=== PATIENT | male | born 1945 | race Caucasian/White ===

== ENCOUNTER 2016-10-04 08:01 | Inpatient (IN) | payer MEDICARE, BC ==
[2016-10-04] MEDS ORDERED: SODIUM CHLORIDE 0.9% 500 ML IV STA (08:05)
[2016-10-04] MEDS ORDERED: DILTIAZEM 125 MG in SODIUM CHLORIDE 0.9% 100 ML IV ONE ×2 (08:06→09:59)
--- NOTE | 2016-10-04 08:15 | ED ---
General Adult HPI - General Stated complaint: afib, sob Time Seen by Provider: 10/04/16 08:01 Source: RN notes reviewed - History of Present Illness Initial comments: This is a 71-year-old male with past medical history of coronary artery disease and 3 heart attacks. Patient states he also has high blood pressure and he has had his heart racing in the past. Patient states she does not know if he said atrial fibrillation or not. Patient states about 5:30 this morning woke up and felt short of breath. Patient states started having some chest discomfort but it was not anywhere near the same as his heart attacks. Patient states he took a nitroglycerin as to help did not his difficulty breathing got worse they called EMS. EMS gave him a breathing treatment in route because he thought it was tight he currently is feeling much better. Patient states he is not having any chest pain or pressure at this time. Patient denies any palpitations. Patient states he is still somewhat short of breath but not as bad as earlier. Patient denies any recent fever chills or cough. Patient states he has an occasional cough but no real sputum production. Patient states he is still smoking. - Related Data Home Medications Medication Instructions Recorded Confirmed Aspirin 81 mg PO DAILY 11/23/14 10/04/16 Atenolol [Tenormin] 25 mg PO DAILY 11/23/14 10/04/16 Baclofen [Lioresal] 10 mg PO TID 11/23/14 10/04/16 Budesonide [Pulmicort] 0.25 mg INHALATION RT-BID 11/23/14 10/04/16 Cholecalciferol [Vitamin D3] 400 unit PO DAILY 11/23/14 10/04/16 Clopidogrel [Plavix] 75 mg PO DAILY 11/23/14 10/04/16 Isosorbide Mononitrate ER [Imdur] 60 mg PO DAILY 11/23/14 10/04/16 Levalbuterol Hfa Inhaler [Xopenex 2 puff INHALATION RT-Q6H PRN 11/23/14 10/04/16 Hfa Inhaler] Levothyroxine Sodium [Synthroid] 88 mcg PO DAILY 11/23/14 10/04/16 Multivitamin [Men's Multi-Vitamin] 1 tab PO DAILY 11/23/14 10/04/16 Nitroglycerin Sl Tabs [Nitrostat] 0.4 mg SUBLINGUAL Q5M PRN 11/23/14 10/04/16 Quinapril HCl [Accupril] 5 mg PO DAILY 11/23/14 10/04/16 Simvastatin [Zocor] 40 mg PO HS 11/23/14 10/04/16 Zafirlukast [Accolate] 20 mg PO BID 11/23/14 10/04/16 amLODIPine [Norvasc] 5 mg PO DAILY 11/23/14 10/04/16 clonazePAM [KlonoPIN] 0.5 tab PO TID 11/23/14 10/04/16 Calcium Carbonate [Tums] 500 mg PO TID 03/22/16 10/04/16 Ferrous Sulfate [Feosol] 325 mg PO DAILY 03/22/16 10/04/16 Meclizine [Antivert] 12.5 mg PO DAILY 03/22/16 10/04/16 Allergies Allergy/AdvReac Type Severity Reaction Status Date / Time codeine Allergy Unknown Verified 10/04/16 08:09 iodine Allergy Unknown Verified 10/04/16 08:09 neoprene Allergy Unknown Uncoded 03/22/16 11:30 Review of Systems ROS Statement: Those systems with pertinent positive or pertinent negative responses have been documented in the HPI. ROS Other: All systems not noted in ROS Statement are negative. Past Medical History Past Medical History: Asthma, CVA/TIA, GERD/Reflux, Hypertension, Myocardial Infarction ([place]), Seizure Disorder, Sleep Apnea/CPAP/BIPAP, Syncope, Thyroid Disorder Additional Past Medical History / Comment(s): anemia, dizziness, "black outs" basal spastic disease, myoclonus sizures, RLS, recent black out bruised 4 ribs Last Myocardial Infarction Date:: 2002 History of Any Multi-Drug Resistant Organisms: None Reported Past Surgical History: Cholecystectomy, Heart Catheterization With Stent, Orthopedic Surgery, Tonsillectomy Additional Past Surgical History / Comment(s): surgery for sleep apnea, varicose veins removed angelita. legs Past Anesthesia/Blood Transfusion Reactions: Previous Problems w/ Anesthesia Additional Past Anesthesia/Blood Transfusion Reaction / Comment(s): states spinal anesthesia cuases inability to urinate Date of Last Stent Placement:: 1996 Smoking Status: Current some day smoker - Past Family History Father Family Medical History: Cancer Mother Family Medical History: Cancer Brother(s) Family Medical History: Cancer General Exam - General Exam Comments Initial Comments: GENERAL: Patient is well-developed and well-nourished. Patient is nontoxic and well- hydrated and is in no acute distress. ENT: Neck is soft and supple. No significant lymphadenopathy is noted. Oropharynx is clear. Moist mucous membranes. Neck has full range of motion without eliciting any pain. EYES: The sclera were anicteric and conjunctiva were pink and moist. Extraocular movements were intact and pupils were equal round and reactive to light. Eyelids were unremarkable. PULMONARY: Unlabored respirations. Good breath sounds bilaterally. No audible rales rhonchi or wheezing was noted. CARDIOVASCULAR: Patient has no regular rate and rhythm at about 150 beats a minute. ABDOMEN: Soft and nontender with normal bowel sounds. No palpable organomegaly was noted. There is no palpable pulsatile mass. SKIN: Skin is clear with no lesions or rashes and otherwise unremarkable. NEUROLOGIC: Patient is alert and oriented x3. Cranial nerves II through XII are grossly intact. Motor and sensory are also intact. Normal speech, volume and content. Symmetrical smile. MUSCULOSKELETAL: Normal extremities with adequate strength and full range of motion. No lower extremity swelling or edema. No calf tenderness. LYMPHATICS: No significant lymphadenopathy is noted PSYCHIATRIC: Normal psychiatric evaluation. Normal interpersonal interactions appears functionally intact in deals appropriately with others. No signs of depression. No signs of anxiety. Course Vital Signs 10/04/16 10/04/16 10/04/16 08:04 08:30 08:45 Temperature 100.0 F H Pulse Rate 155 H 154 H 156 H Respiratory 20 18 20 Rate Blood Pressure 140/90 130/77 102/67 O2 Sat by Pulse 97 98 97 Oximetry 10/04/16 10/04/16 09:00 09:30 Temperature Pulse Rate 144 H 152 H Respiratory 20 20 Rate Blood Pressure 110/87 116/77 O2 Sat by Pulse 96 97 Oximetry Medical Decision Making - Medical Decision Making EKG shows atrial fibrillation with rapid ventricular response at 160 beats a minute QRS is 94 QT interval is 298 QTC is 486. Patient's EKG shows no ST segment elevation or depression or T-wave abdomen is noted. I spoke with the patient for approximately 4 minutes about smoking in the options to quit as well as the potential issues in the future. Chest x-ray shows no acute abnormality. Started the patient on a Cardizem drip after I gave the patient a 5 mg bolus of Cardizem. I spoke with Dr. White he agreed to admit the patient admitted the patient I continued the Cardizem on the floor as well as heparin. - Lab Data Result diagrams: 10/04/16 08:11 10/04/16 08:11 Lab Results 10/04/16 10/04/16 10/04/16 Range/Units 08:11 08:11 08:11 WBC 8.5 (3.8-10.6) k/uL RBC 4.60 (4.30-5.90) m/uL Hgb 16.1 (13.0-17.5) gm/dL Hct 44.5 (39.0-53.0) % MCV 96.7 (80.0-100.0) fL MCH 35.0 (25.0-35.0) pg MCHC 36.2 (31.0-37.0) g/dL RDW 13.1 (11.5-15.5) % Plt Count 225 (150-450) k/uL Neutrophils % 45 % Lymphocytes % 43 % Monocytes % 7 % Eosinophils % 3 % Basophils % 1 % Neutrophils # 3.8 (1.3-7.7) k/uL Lymphocytes # 3.6 (1.0-4.8) k/uL Monocytes # 0.6 (0-1.0) k/uL Eosinophils # 0.2 (0-0.7) k/uL Basophils # 0.1 (0-0.2) k/uL PT (9.0-12.0) sec INR (<1.1) APTT (22.0-30.0) sec Sodium 142 (137-145) mmol/L Potassium 3.7 (3.5-5.1) mmol/L Chloride 111 H (98-107) mmol/L Carbon Dioxide 20 L (22-30) mmol/L Anion Gap 11 mmol/L BUN 9 (9-20) mg/dL Creatinine 0.76 (0.66-1.25) mg/dL Est GFR (MDRD) Af Amer >60 (>60 ml/min/1.73 sqM) Est GFR (MDRD) Non-Af >60 (>60 ml/min/1.73 sqM) Glucose 117 H (74-99) mg/dL Plasma Lactic Acid Mio (0.7-2.0) mmol/L Calcium 8.9 (8.4-10.2) mg/dL Magnesium 1.7 (1.6-2.3) mg/dL Total Bilirubin 0.4 (0.2-1.3) mg/dL AST 24 (17-59) U/L ALT 25 (21-72) U/L Alkaline Phosphatase 74 (38-126) U/L Total Creatine Kinase 45 L (55-170) U/L CK-MB (CK-2) 0.5 (0.0-2.4) ng/mL CK-MB (CK-2) Rel Index 1.1 Troponin I <0.012 (0.000-0.034) ng/mL Total Protein 6.2 L (6.3-8.2) g/dL Albumin 3.7 (3.5-5.0) g/dL TSH 1.900 (0.465-4.680) mIU/L Free T4 1.12 (0.78-2.19) ng/dL 10/04/16 10/04/16 Range/Units 08:11 08:11 WBC (3.8-10.6) k/uL RBC (4.30-5.90) m/uL Hgb (13.0-17.5) gm/dL Hct (39.0-53.0) % MCV (80.0-100.0) fL MCH (25.0-35.0) pg MCHC (31.0-37.0) g/dL RDW (11.5-15.5) % Plt Count (150-450) k/uL Neutrophils % % Lymphocytes % % Monocytes % % Eosinophils % % Basophils % % Neutrophils # (1.3-7.7) k/uL Lymphocytes # (1.0-4.8) k/uL Monocytes # (0-1.0) k/uL Eosinophils # (0-0.7) k/uL Basophils # (0-0.2) k/uL PT 10.0 (9.0-12.0) sec INR 1.0 (<1.1) APTT 26.1 (22.0-30.0) sec Sodium (137-145) mmol/L Potassium (3.5-5.1) mmol/L Chloride (98-107) mmol/L Carbon Dioxide (22-30) mmol/L Anion Gap mmol/L BUN (9-20) mg/dL Creatinine (0.66-1.25) mg/dL Est GFR (MDRD) Af Amer (>60 ml/min/1.73 sqM) Est GFR (MDRD) Non-Af (>60 ml/min/1.73 sqM) Glucose (74-99) mg/dL Plasma Lactic Acid Mio 1.8 (0.7-2.0) mmol/L Calcium (8.4-10.2) mg/dL Magnesium (1.6-2.3) mg/dL Total Bilirubin (0.2-1.3) mg/dL AST (17-59) U/L ALT (21-72) U/L Alkaline Phosphatase (38-126) U/L Total Creatine Kinase (55-170) U/L CK-MB (CK-2) (0.0-2.4) ng/mL CK-MB (CK-2) Rel Index Troponin I (0.000-0.034) ng/mL Total Protein (6.3-8.2) g/dL Albumin (3.5-5.0) g/dL TSH (0.465-4.680) mIU/L Free T4 (0.78-2.19) ng/dL Critical Care Time Critical Care Time: Yes Total Critical Care Time: 35 Disposition Clinical Impression: Atrial fibrillation with rapid ventricular response Disposition: ADMITTED IP TO THIS HOSP Referrals: Musa Sheth MD [Primary Care Provider] - 1-2 days
[2016-10-04 08:23] LABS: Basophils # (A) 0.1 k/uL (0-0.2); Basophils % (A) 1 %; CH 34.3; CHCM 35.6; Eosinophils # (A) 0.2 k/uL (0-0.7); Eosinophils % (A) 3 %; HCT 44.5 % (39.0-53.0); HDW 2.48; HGB 16.1 gm/dL (13.0-17.5); Luc # (Auto) 0.18; Luc % (Auto) 2; Lymphocytes # (A) 3.6 k/uL (1.0-4.8); Lymphocytes % (A) 43 %; MCHC 36.2 g/dL (31.0-37.0); MCV 96.7 fL (80.0-100.0); Mean Platelet Volume 7.3; Monocytes # (A) 0.6 k/uL (0-1.0); Monocytes % (A) 7 %; Neutrophils # (A) 3.8 k/uL (1.3-7.7); Neutrophils % (A) 45 %; RDW 13.1 % (11.5-15.5); WBC 8.5 k/uL (3.8-10.6)
[2016-10-04 08:32] LABS: Partial Thromboplastin Time 26.1 sec (22.0-30.0)
[2016-10-04 08:34] LABS: ALT 25 U/L (21-72); AST 24 U/L (17-59); Alkaline Phosphatase 74 U/L (38-126); Anion Gap 11 mmol/L; Blood Urea Nitrogen 9 mg/dL (9-20); Calcium 8.9 mg/dL (8.4-10.2); Carbon Dioxide 20 mmol/L (22-30); Chloride 111 mmol/L (98-107); Glucose 117 mg/dL (74-99); Magnesium 1.7 mg/dL (1.6-2.3); Non-African American GFR(MDRD) >60 (>60 ml/min/1.73 sqM); Potassium 3.7 mmol/L (3.5-5.1); Sodium 142 mmol/L (137-145); Total Bilirubin 0.4 mg/dL (0.2-1.3); Total Protein 6.2 g/dL (6.3-8.2)
[2016-10-04 08:45] LABS: Creatine Kinase 45 U/L (55-170)
--- NOTE | 2016-10-04 08:54 | XR ---
EXAMINATION TYPE: XR chest 2V DATE OF EXAM: 10/04/2016 HISTORY: dysrhythmia. REFERENCE: Previous study dated 01/24/2016. FINDINGS: The lungs are overinflated. The heart is upper limits of normal in size. The lungs appear c lear. Pleural spaces are clear. IMPRESSION: 1. COPD. 2. BORDERLINE CARDIOMEGALY.
[2016-10-04 08:58] LABS: Creatine Kinase MB 0.5 ng/mL (0.0-2.4); Troponin I <0.012 ng/mL (0.000-0.034)
[2016-10-04] MEDS ORDERED: ASPIRIN 325 MG TAB PO STA (09:01)
[2016-10-04] MEDS ORDERED: DILTIAZEM 5 MG/ML 5 ML VIAL IVP STA (09:53)
[2016-10-04] MEDS ORDERED: NITROGLYCERIN SL TABS 0.4 MG TAB SUBLINGUAL PRN (10:19)
[2016-10-04] MEDS ORDERED: HEPARIN SODIUM,PORCINE 5,000 UNIT/ML 1 ML VIAL IV ONE (10:28)
[2016-10-04] MEDS ORDERED: NICOTINE 21MG/24HR PATCH TRANSDERM STA (10:29)
[2016-10-04] MEDS: HEPARIN SODIUM,PORCINE/D5W PMX 25,000 UNIT in DEXTROSE/WATER 1 500ML.BAG IV SCH (11:01)
[2016-10-04] MEDS ORDERED: THIAMINE 100 MG/ML 2 ML VIAL IM STA (12:28)
[2016-10-04] MEDS ORDERED: LORazepam 2 MG/ML SYRINGE IV PRN ×3 (12:28)
[2016-10-04 13:40] VITALS: BMI 28.3
[2016-10-04] MEDS ORDERED: ALBUTEROL NEBULIZED 2.5 MG/3 ML INHALATION PRN (14:19)
[2016-10-04] MEDS ORDERED: TEMAZEPAM 15 MG CAP PO PRN (14:21)
[2016-10-04 15:27] LABS: Creatine Kinase MB 0.6 ng/mL (0.0-2.4); Troponin I 0.013 ng/mL (0.000-0.034)
[2016-10-04] MEDS: BACLOFEN 10 MG TAB PO SCH ×3 (15:51→20:23)
[2016-10-04] MEDS: THIAMINE 100 MG TAB PO SCH (15:53)
[2016-10-04] MEDS: clonazePAM 0.5 MG TAB PO SCH ×3 (15:58→23:07)
[2016-10-04] MEDS: CALCIUM CARBONATE 500 MG CHEWABLE PO SCH (17:30)
[2016-10-04] MEDS: BUDESONIDE 0.25 MG/2 ML NEBU INHALATION SCH (20:49)
[2016-10-04] MEDS ORDERED: MONTELUKAST 10 MG TAB PO SCH (21:00)
[2016-10-04] MEDS ORDERED: ATORVASTATIN 20 MG TAB PO SCH (21:00)
[2016-10-04] MEDS ORDERED: ATENOLOL 25 MG TAB PO ONE (21:00)
[2016-10-04 21:34] LABS: Creatine Kinase 57 U/L (55-170)
[2016-10-04 21:46] LABS: Creatine Kinase MB 0.7 ng/mL (0.0-2.4); Troponin I <0.012 ng/mL (0.000-0.034)
[2016-10-05 03:07] LABS: Basophils # (A) 0.1 k/uL (0-0.2); Basophils % (A) 1 %; CH 33.8; CHCM 35.1; Eosinophils # (A) 0.3 k/uL (0-0.7); Eosinophils % (A) 4 %; HCT 40.9 % (39.0-53.0); HDW 2.49; HGB 14.5 gm/dL (13.0-17.5); Luc # (Auto) 0.12; Luc % (Auto) 2; Lymphocytes # (A) 2.3 k/uL (1.0-4.8); Lymphocytes % (A) 29 %; MCH 34.4 pg (25.0-35.0); MCHC 35.5 g/dL (31.0-37.0); MCV 96.9 fL (80.0-100.0); Mean Platelet Volume 7.4; Monocytes # (A) 0.5 k/uL (0-1.0); Monocytes % (A) 6 %; Neutrophils # (A) 4.7 k/uL (1.3-7.7); Neutrophils % (A) 59 %; RBC 4.22 m/uL (4.30-5.90); RDW 12.8 % (11.5-15.5); WBC 7.9 k/uL (3.8-10.6); WBC (Perox) 7.56
[2016-10-05 03:25] LABS: Anion Gap 7 mmol/L; Blood Urea Nitrogen 13 mg/dL (9-20); Calcium 8.7 mg/dL (8.4-10.2); Carbon Dioxide 23 mmol/L (22-30); Chloride 109 mmol/L (98-107); Cholesterol 134 mg/dL (<200); Glucose 93 mg/dL (74-99); HDL Cholesterol 38 mg/dL (40-60); Non-African American GFR(MDRD) >60 (>60 ml/min/1.73 sqM); Sodium 139 mmol/L (137-145); Triglycerides 150 mg/dL (<150)
[2016-10-05] MEDS ORDERED: LEVOTHYROXINE 88 MCG TAB PO SCH (06:30)
[2016-10-05] MEDS: BUDESONIDE 0.25 MG/2 ML NEBU INHALATION SCH (08:06)
--- NOTE | 2016-10-05 08:20 | P.CRDCN ---
History of Present Illness Consult date: 10/05/16 Requesting physician: Dae White Consult reason: atrial fibrillation Chief complaint: Heart racing History of present illness: This is a 71-year-old gentleman with known history of coronary artery disease and prior myocardial infarction, patient also states he underwent stent placement in the past. He follows with Dr. Turk in the office. History also of hypertension, hyperlipidemia, prior TIA, COPD, sleep apnea, hypothyroidism, nicotine dependence, and daily EtOH use of up to 15 bottles of beer a day. He presents to the hospital with symptoms of feeling his heart racing fast. He states he has had episodes of this in the past and has even worn Holter monitors which have never detected atrial fibrillation. He recalls an episode in May of this year prior to an office visit with Dr. Turk where he states his heart was racing. By the time he went to the office appointment his heart was back down to a normal heart rate. On presentation here patient's EKG showed atrial fibrillation with a rapid ventricular response. He was initiated on IV heparin and Cardizem and is currently in a normal sinus rhythm. Chest x- ray on admission revealed COPD with borderline cardiomegaly. Blood Pressure on arrival 140/90, heart rate in the 150s, temperature 100. Blood pressure this morning 140/80 with a heart rate in the 60s. CBC normal. Potassium 4.0, BUN 13 , creatinine 0.7. Troponins have been negative 3. TSH and free T4 normal. Cholesterol 134, triglycerides 150, LDL 66 and HDL 38. At the time of my examination this morning, patient feels well, denies any palpitations, no dizziness or lightheadedness. He is currently in a normal sinus rhythm. The patient did mention, that he had been having episodes of black stool, and is scheduled as an outpatient to undergo EGD and bowel capsule with Dr. Gibson. Does not noticed any black stool recently. 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 Last Myocardial Infarction Date:: 2003 History of Any Multi-Drug Resistant Organisms: None Reported Past Surgical History: Cholecystectomy, Heart Catheterization, Heart Catheterization With Stent, Orthopedic Surgery, Tonsillectomy Additional Past Surgical History / Comment(s): UVPPP, varicose veins removed angelita. legsL knee scope, colonoscopy with one varicosity found per pt. Past Anesthesia/Blood Transfusion Reactions: Previous Problems w/ Anesthesia Additional Past Anesthesia/Blood Transfusion Reaction / Comment(s): states spinal anesthesia causes inability to urinate. Pt has never received blood. Date of Last Stent Placement:: 1996 Smoking Status: Current every day smoker - Past Family History Father Family Medical History: Cancer Mother Family Medical History: Cancer, Respiratory Disorder Additional Family Medical History / Comment(s): Mother had TB Brother(s) Family Medical History: Cancer, Respiratory Disorder Additional Family Medical History / Comment(s): Brother had TB Medications and Allergies Home Medications Medication Instructions Recorded Confirmed Type Aspirin 81 mg PO DAILY 11/23/14 10/04/16 History Atenolol [Tenormin] 25 mg PO DAILY 11/23/14 10/04/16 History Baclofen [Lioresal] 10 mg PO TID 11/23/14 10/04/16 History Budesonide [Pulmicort] 0.25 mg INHALATION RT-BID 11/23/14 10/04/16 History Cholecalciferol [Vitamin D3] 400 unit PO DAILY 11/23/14 10/04/16 History Clopidogrel [Plavix] 75 mg PO DAILY 11/23/14 10/04/16 History Isosorbide Mononitrate ER [Imdur] 60 mg PO DAILY 11/23/14 10/04/16 History Levalbuterol Hfa Inhaler [Xopenex 2 puff INHALATION RT-Q6H PRN 11/23/14 History Hfa Inhaler] Levothyroxine Sodium [Synthroid] 88 mcg PO DAILY 11/23/14 10/04/16 History Multivitamin [Men's Multi-Vitamin] 1 tab PO DAILY 11/23/14 10/04/16 History Nitroglycerin Sl Tabs [Nitrostat] 0.4 mg SUBLINGUAL Q5M PRN 11/23/14 10/04/16 History Quinapril HCl [Accupril] 5 mg PO DAILY 11/23/14 10/04/16 History Simvastatin [Zocor] 40 mg PO HS 11/23/14 10/04/16 History Zafirlukast [Accolate] 20 mg PO BID 11/23/14 10/04/16 History amLODIPine [Norvasc] 5 mg PO DAILY 11/23/14 10/04/16 History clonazePAM [KlonoPIN] 0.5 tab PO TID 11/23/14 10/04/16 History Calcium Carbonate [Tums] 500 mg PO TID 03/22/16 10/04/16 History Ferrous Sulfate [Feosol] 325 mg PO DAILY 03/22/16 10/04/16 History Meclizine [Antivert] 12.5 mg PO DAILY 03/22/16 10/04/16 History Allergies Allergy/AdvReac Type Severity Reaction Status Date / Time codeine Allergy Unknown Verified 10/04/16 08:09 iodine Allergy Unknown Verified 10/04/16 08:09 neoprene Allergy Unknown Uncoded 03/22/16 11:30 Physical Exam Vitals: Vital Signs Temp Pulse Pulse Resp BP BP Pulse Ox 10/05/16 04:00 97.0 F L 68 18 145/85 97 10/05/16 00:00 66 16 142/84 95 10/04/16 20:52 80 10/04/16 20:42 80 10/04/16 20:32 96.9 F L 76 18 142/75 96 10/04/16 16:00 97.1 F L 70 20 126/75 100 10/04/16 11:30 105 H 18 130/88 99 10/04/16 11:06 98.0 F 126 H 20 113/67 97 10/04/16 10:00 148 H 18 143/81 97 10/04/16 09:30 152 H 20 116/77 97 10/04/16 09:00 144 H 20 110/87 96 10/04/16 08:45 156 H 20 102/67 97 10/04/16 08:30 154 H 18 130/77 98 Intake and Output 0710/05/16 10/05/16 22:59 06:59 14:59 Intake Total 383.667 80 Output Total 0 Balance 383.667 80 Intake: IV 80 .9 80 Intake, IV Titration 183.667 0 Amount Diltiazem 125 mg In 0 Sodium Chloride 0.9% 100 ml @ 5 MG/HR 5 mls/hr IV .Q24H ONE Rx#:[id number] Heparin Sodium,Porcine/ 183.667 D5w Pmx 25,000 unit In Dextrose/Water 1 500ml. bag @ 10.255 UNITS/KG/HR 20 mls/hr IV .Q24H [facility] Rx #:[id number] Oral 200 Output: Urine 0 Other: # Voids 1 Weight 97.3 kg PHYSICAL EXAMINATION: HEENT: [Head is atraumatic, normocephalic. Pupils equal, round. Neck is supple. There is no elevated jugular venous pressure.] HEART EXAMINATION: [Heart S1, S2 normal. No murmur or gallop heard.] CHEST EXAMINATION:[ Lungs are clear to auscultation and precussion. No chest wall tenderness is noted on palpation or with deep breathing.] ABDOMEN: [ Soft, nontender. Bowel sounds are heard. No organomegaly noted]. EXTREMITIES:[ 2+ peripheral pulses with no evidence of peripheral edema and no calf tenderness noted]. NEUROLOGIC [patient is awake, alert and oriented -3.] . Results 10/05/16 02:43 10/05/16 02:43 Cardiac Enzymes 10/04/16 10/04/16 10/04/16 Range/Units 08:11 08:11 14:21 AST 24 (17-59) U/L CK-MB (CK-2) 0.5 0.6 (0.0-2.4) ng/mL Troponin I <0.012 0.013 (0.000-0.034) ng/mL 10/04/16 Range/Units 20:39 AST (17-59) U/L CK-MB (CK-2) 0.7 (0.0-2.4) ng/mL Troponin I <0.012 (0.000-0.034) ng/mL Coagulation 10/04/16 10/04/16 10/05/16 Range/Units 08:11 17:32 02:43 PT 10.0 (9.0-12.0) sec APTT 26.1 37.0 H 51.1 H (22.0-30.0) sec 10/05/16 Range/Units 05:45 PT (9.0-12.0) sec APTT 51.2 H (22.0-30.0) sec Lipids 10/05/16 Range/Units 02:43 Triglycerides 150 H (<150) mg/dL Cholesterol 134 (<200) mg/dL HDL Cholesterol 38 L (40-60) mg/dL CBC 10/04/16 10/05/16 Range/Units 08:11 02:43 WBC 8.5 7.9 (3.8-10.6) k/uL RBC 4.60 4.22 L (4.30-5.90) m/uL Hgb 16.1 14.5 (13.0-17.5) gm/dL Hct 44.5 40.9 (39.0-53.0) % Plt Count 225 188 (150-450) k/uL Comprehensive Metabolic Panel 10/04/16 10/05/16 Range/Units 08:11 02:43 Sodium 142 139 (137-145) mmol/L Potassium 3.7 4.0 (3.5-5.1) mmol/L Chloride 111 H 109 H (98-107) mmol/L Carbon Dioxide 20 L 23 (22-30) mmol/L BUN 9 13 (9-20) mg/dL Creatinine 0.76 0.70 (0.66-1.25) mg/dL Glucose 117 H 93 (74-99) mg/dL Calcium 8.9 8.7 (8.4-10.2) mg/dL AST 24 (17-59) U/L ALT 25 (21-72) U/L Alkaline Phosphatase 74 (38-126) U/L Total Protein 6.2 L (6.3-8.2) g/dL Albumin 3.7 (3.5-5.0) g/dL Current Medications Generic Name Dose Route Start Last Admin Trade Name Freq PRN Reason Stop Dose Admin Albuterol Sulfate 2.5 mg 10/04/16 14:19 Ventolin Nebulized INHALATION RT-Q6H PRN Shortness Of Breath Amlodipine Besylate 5 mg 10/05/16 09:00 Norvasc PO DAILY [facility] Aspirin 325 mg 10/05/16 09:00 Aspirin PO DAILY [facility] Atenolol 25 mg 10/05/16 09:00 Tenormin PO DAILY [facility] Atorvastatin Calcium 20 mg 10/04/16 21:00 10/04/16 20:17 Lipitor PO 20 mg HS [facility] Administration Baclofen 10 mg 10/04/16 16:00 10/04/16 20:23 Lioresal PO 10 mg TID [facility] Administration Budesonide 0.25 mg 10/04/16 20:00 10/05/16 08:06 Pulmicort INHALATION 0.25 mg RT-BID [facility] Administration Calcium Carbonate/Glycine 500 mg 10/04/16 17:30 10/04/16 17:30 Tums PO 500 mg AC-TID [facility] Administration Cholecalciferol 400 unit 10/05/16 12:00 Vitamin D3 PO DAILY@1200 [facility] Clonazepam 0.5 mg 10/04/16 16:00 10/04/16 23:07 Klonopin PO 0.5 mg TID [facility] Administration Clopidogrel Bisulfate 75 mg 10/05/16 09:00 Plavix PO DAILY [facility] Ferrous Sulfate 325 mg 10/05/16 09:00 Feosol PO DAILY [facility] Heparin Sodium/Dextrose 25,000 500 mls @ 20 mls/hr 10/04/16 10:30 10/04/16 20 :12 unit/ IV Solution IV 13 units/kg/hr .Q24H [facility] 25.35 mls/hr Protocol Titration 10.255 UNITS/KG/HR Isosorbide Mononitrate 60 mg 10/05/16 09:00 Imdur PO DAILY [facility] Levothyroxine Sodium 88 mcg 10/05/16 06:30 10/05/16 06:40 Synthroid PO 88 mcg DAILY@0630 [facility] Administration Lisinopril 5 mg 10/05/16 09:00 Zestril PO DAILY [facility] Lorazepam 1 mg 10/04/16 12:28 Ativan IV Q2HR PRN [facility] 8 or 9 Lorazepam 1 mg 10/04/16 12:28 Ativan IV Q1HR PRN CIWA 10 to 15 Lorazepam 2 mg 10/04/16 12:28 Ativan IV Q1HR PRN [facility]WA 16 or higher Meclizine HCl 12.5 mg 10/05/16 09:00 Antivert PO DAILY [facility] Montelukast Sodium 10 mg 10/04/16 21:00 10/04/16 20:17 Singulair PO 10 mg HS [facility] Administration Multivitamins 1 each 10/05/16 12:00 Theragran PO DAILY@1200 [facility] Nitroglycerin 0.4 mg 10/04/16 10:19 Nitrostat SUBLINGUAL Q5M PRN Chest Pain Temazepam 15 mg 10/04/16 14:21 Restoril PO HS PRN Insomnia Thiamine HCl 100 mg 10/04/16 17:00 10/04/16 15:53 Vitamin B-1 PO 100 mg BID@1200,1700 [facility] Administration Intake and Output 10/04/16 10/05/16 10/05/16 22:59 06:59 14:59 Intake Total 383.667 80 Output Total 0 Balance 383.667 80 Intake: IV 80 .9 80 Intake, IV Titration 183.667 0 Amount Diltiazem 125 mg In 0 Sodium Chloride 0.9% 100 ml @ 5 MG/HR 5 mls/hr IV .Q24H [facility] Rx#:[id number] Heparin Sodium,Porcine/ 183.667 D5w Pmx 25,000 unit In Dextrose/Water 1 500ml. bag @ 10.255 UNITS/KG/HR 20 mls/hr IV .Q24H [facility] Rx #:[id number] Oral 200 Output: Urine 0 Other: # Voids 1 Weight 97.3 kg 10/05/16 02:43 10/05/16 02:43 EKG Interpretations (text) EKG shows atrial fibrillation with a rapid ventricular response Assessment and Plan Plan: Assessment and plan 1 atrial fibrillation with rapid ventricular response, paroxysmal. #2 known history of coronary artery disease with prior myocardial infarctions and prior stent placement #3 hypertension #4 hyperlipidemia #5 hypothyroidism #6 nicotine dependence #7 EtOH use #8 COPD #9 sleep apnea #10 prior TIA Plan Obtain an echocardiogram with Doppler study. IV Cardizem has been discontinued. Resume atenolol and increase the dose to 50 mg daily. Patient has been educated regarding the importance of anticoagulation. We will check on one of the newer anticoagulants. Patient has mentioned however that he has had recent black stool and is scheduled for an EGD as an outpatient. We will decrease his aspirin to 81 mg daily. We will also obtain Dr. Turk's progress note from the office. DNP note has been reviewed, I agree with a documented findings and plan of care. Patient was seen and examined.
[2016-10-05 08:29] VITALS: TEMP 97.1
[2016-10-05] MEDS: clonazePAM 0.5 MG TAB PO SCH (08:31)
[2016-10-05] MEDS: BACLOFEN 10 MG TAB PO SCH (08:32)
[2016-10-05] MEDS: CALCIUM CARBONATE 500 MG CHEWABLE PO SCH ×2 (08:33→11:22)
[2016-10-05] MEDS ORDERED: CLOPIDOGREL 75 MG TAB PO SCH (09:00)
[2016-10-05] MEDS ORDERED: NON-FORMULARY DRUG (Multivitamin [Men's Multi-Vitamin] 1 TAB) PO SCH (09:00)
[2016-10-05] MEDS ORDERED: ASPIRIN 81 MG CHEW PO SCH (09:00)
[2016-10-05] MEDS ORDERED: amLODIPine 5 MG TAB PO SCH (09:00)
[2016-10-05] MEDS ORDERED: LISINOPRIL 5 MG TAB PO SCH (09:00)
[2016-10-05] MEDS ORDERED: MECLIZINE 12.5 MG TAB PO SCH (09:00)
[2016-10-05] MEDS ORDERED: FERROUS SULFATE 325 MG TAB PO SCH (09:00)
[2016-10-05] MEDS ORDERED: ASPIRIN 325 MG TAB PO SCH (09:00)
[2016-10-05] MEDS ORDERED: ATENOLOL 50 MG TAB PO SCH (09:00)
[2016-10-05] MEDS ORDERED: ATENOLOL 25 MG TAB PO SCH (09:00)
[2016-10-05] MEDS ORDERED: ISOSORBIDE MONONITRATE ER 60 MG TAB.ER.24H PO SCH (09:00)
[2016-10-05] MEDS: HEPARIN SODIUM,PORCINE/D5W PMX 25,000 UNIT in DEXTROSE/WATER 1 500ML.BAG IV SCH (09:10)
--- NOTE | 2016-10-05 09:55 | P.PN ---
Progress Note - Text This is an addendum to the dictated cardiology consultation. The patient has a known history of CAD, chronic tobacco and alcohol intake who presented with palpitations, dizziness and diaphoresis and was noted to be in atrial fibrillation with rapid ventricular response. He is back in sinus mechanism. He had no prior documented history of atrial fibrillation. He has mild chronic angina pectoris and rare use of nitroglycerin over the last 6 months. Unfortunately he drinks beer on a daily basis up to 20 cans a day and had a recent heme-positive stool. I had a long discussion with him regarding the risk of thromboembolic phenomenon , the risk of bleeding on anticoagulation especially with the combination of alcohol intake and episode of GI bleeding. Based on this finding I will withhold anticoagulation at this time, he does not feel that he can decrease his alcohol intake but he will consider it. It is possible that his atrial fibrillation is related to the excessive alcohol intake. We'll continue to medical regimen and he will be followed as an outpatient. Thank you for this consult we will follow with you.
[2016-10-05] MEDS: THIAMINE 100 MG TAB PO SCH (11:22)
[2016-10-05 11:33] VITALS: BP 150/86; PULSE 61; RESP 18
[2016-10-05] MEDS ORDERED: CHOLECALCIFEROL 400 UNIT TAB PO SCH (12:00)
[2016-10-05] MEDS ORDERED: MULTIVITAMINS, THERA 1 EACH TAB PO SCH (12:00)
--- NOTE | 2016-10-06 08:09 | HP ---
DATE OF SERVICE: 10/04/2016 CHIEF COMPLAINTS: Shortness of breath and atrial fibrillation. HISTORY OF PRESENT ILLNESS: This 71-year-old gentleman with past medical history of multiple medical problems including history of asthma, COPD, CVA, TIA , hypertension, was admitted with shortness of breath and was found to have atrial fibrillation with fast ventricular rate. The patient was started on heparin and Cardizem drip. The patient also has history of significant ETOH and smoking also. No chest pain. No palpitations. No fever. PAST MEDICAL HISTORY: History of asthma, COPD, CVA, TIA, hypertension, hyperlipidemia. Medications prior to admission include home medications: 1. Nitro 0.4 sublingual p.r.n. 2. Antivert 12.5 mg daily. 3. Xopenex 2 puffs q.6 p.r.n. 4. Iron sulfate 325 mg p.o. daily. 5. Vitamin D3 400 units daily. 6. Accolate 20 mg p.o. b.i.d. 7. Zocor 40 mg at bedtime. 8. Synthroid 80 mcg p.o. daily. 9. Imdur 60 mg p.o. daily. 10. TUMS 500 mg p.o. daily. 11. Pulmicort 0.25 b.i.d. 12. Lioresal 10 mg p.o. t.i.d. 13. Klonopin 0.5 mg t.i.d. 14. Norvasc 5 mg p.o. daily. 15. Accupril 5 mg p.o. daily. 16. Plavix 75 mg p.o. daily. 17. Tenormin 25 mg p.o. daily. 18. Multivitamin 1 p.o. daily. 19. Aspirin 81 mg p.o. daily. ALLERGIES: CODEINE, IODINE, NEOPRENE. FAMILY HISTORY: History of cancer. Mother had TB. SOCIAL HISTORY: History of alcohol and smoking. REVIEW OF SYSTEMS: ENT: Diminished hearing, diminished vision. CARDIOVASCULAR: As mentioned. RESPIRATORY: As mentioned. GI: No nausea. : No dysuria. NERVOUS SYSTEM: No numbness or weakness. ALLERGY/IMMUNOLOGY: No asthma or hayfever. MUSCULOSKELETAL: As mentioned earlier. HEMATOLOGY: No history of anemia. ENDOCRINE: As mentioned earlier. CONSTITUTIONAL: As mentioned earlier. DERMATOLOGY: Negative. RHEUMATOLOGY: Negative. PSYCHIATRY: As mentioned earlier. PHYSICAL EXAMINATION: The patient is alert and oriented x3. Pulse 120 irregular , blood pressure 113/60, respirations 20, temperature 98 degrees, pulse ox 97% on 2-L. HEENT: Conjunctivae normal. NECK: No jugular venous distention. CARDIOVASCULAR: S1, S2 irregular. No S3, no S4. RESPIRATORY: Breath sounds are diminished at the bases. A few scattered rhonchi. ABDOMEN: Soft, nontender. LEGS: No edema. NERVOUS SYSTEM: No focal deficits. LABS: CBC within normal limits. Other labs are reviewed. CO2 is 20, glucose 117 , total protein 6.2. Chest x-ray reviewed. EKG reviewed. ASSESSMENT: 1. Atrial fibrillation with fast ventricular rate present on admission. 2. Chronic obstructive pulmonary disease on the chest x-ray. 3. History of asthma. 4. History of cerebrovascular accident, transient ischemic attack. 5. Hypertension. 6. History of seizure disorder. 7. History of coronary artery disease and stent. 8. History of ETOH and nicotine dependence. RECOMMENDATIONS AND DISCUSSION: In this 71-year-old gentleman who presented with multiple complex medical issues, will monitor the patient closely. Continue the current medications, continue Cardizem. Continue with heparin. Otherwise [place] protocol. Cardizem drip. Cardiology consultation. 2-D echo with Doppler. Guarded prognosis. Further recommendations to follow. MTDD
--- NOTE | 2016-10-07 15:27 | DS ---
FINAL DIAGNOSES: 1. Atrial fibrillation with fast ventricular rate, paroxysmal. 2. History of coronary artery stent. 3. History of ETOH. 4. History of nicotine dependence. 5. History of asthma, chronic obstructive pulmonary disease. 6. Hypertension. 7. History of seizure disorder. DISCHARGE DISPOSITION: The patient is being discharged in stale condition with guarded prognosis. HISTORY OF PRESENT ILLNESS: This 71-year-old gentleman with past medical history of multiple medical problems admitted with atrial fibrillation with fast ventricular rate. Patient was given Cardizem and improved significantly. Anticoagulants were deferred because of the patient's history of alcohol and other reasons. Please refer to cardiology note for further details. On exam, vitals are stable. Cardiovascular: S1, S2. No S3, no S4. Abdomen: Soft, nontender. Nervous System: No focal deficits. DISCHARGE ADVICE AND MEDICATIONS: 1. Diet is cardiac. 2. Activity limited until follow up. 3. Follow up with Dr. Rob Sheth in 2 to 3 days. 4. Follow with Cardiology as recommended. 5. The medications will be Norvasc 5 mg p.o. daily. 6. Aspirin 81 mg daily. 7. Tenormin 50 mg p.o. daily. 8. Lioresal 10 mg p.o. t.i.d. 9. Pulmicort 0.25 b.i.d. 10. TUMS 500 mg t.i.d. p.r.n. 11. Vitamin D3 400 units daily. 12. Klonopin 0.5 t.i.d. 13. Plavix 75 mg p.o. daily. 14. Iron sulfate 320 mg p.o. daily. 15. Imdur ER 60 mg p.o. daily. 16. Xopenex 2 puffs q.i.d. p.r.n. 17. Synthroid 88 mcg p.o. daily. 18. Antivert 12.5 mg p.o. daily. 19. Multivitamins 1 p.o. daily. 20. Nitro 0.4 sublingual p.r.n. 21. Accupril 5 mg p.o. daily. 22. Zocor 40 mg q.h.s. 23. Vitamin B1, thiamin 100 mg p.o. b.i.d. 24. Accolate 20 mg p.o. b.i.d. MTDD
--- NOTE | 2016-10-08 11:21 | ECHOF ---
Referral Reason:a-fib MEASUREMENTS -------- HEIGHT: 185.4 cm WEIGHT: 97.5 kg BP: 113/67 RVIDd: 2.4 cm (< 3.3) IVSd: 1.6 cm (0.6 - 1.1) LVIDd: 4.2 cm (3.9 - 5.3) LVPWd: 1.6 cm (0.6 - 1.1) IVSs: 1.8 cm LVIDs: 3.1 cm LVPWs: 1.9 cm LAESV Index (A-L): 12.59 ml/m Ao Diam: 3.9 cm (2.0 - 3.7) AV Cusp: 1.8 cm (1.5 - 2.6) LA Diam: 2.3 cm (2.7 - 3.8) MV EXCURSION: 20.824 mm (> 18.000) MV EF SLOPE: 101 mm/s (70 - 150) EPSS: 1.5 cm MV E Hank: 0.79 m/s MV DecT: 255 ms MV A Hank: 0.66 m/s MV E/A Ratio: 1.19 RAP: 5.00 mmHg RVSP: 10.49 mmHg FINDINGS -------- Sinus rhythm. This was a technically difficult study with suboptimal views. The left ventricular size is normal. There is moderate concentric left ventricular hypertrophy. Overall left ventricular systolic function is low-normal with, an EF between 50 - 55 %. The right ventricle is normal in size and function. Normal LA size by volume 22+/-6 ml/m2. The right atrium is normal in size. 1.5mg of Definity was utilized for enhancement of images There is mild aortic valve sclerosis. There is no evidence of aortic regurgitation. The mitral valve leaflets are mildly thickened. There is trace to mild mitral regurgitation. Trace tricuspid regurgitation present. There is no evidence of pulmonary hypertension. The right ventricular systolic pressure, as measured by Doppler, is 10.49mmHg. The pulmonic valve was not well visualized. There is no pulmonic regurgitation present. The aortic root size is normal. The inferior vena cava is mildly dilated. There is no pericardial effusion. CONCLUSIONS -------- 1. Sinus rhythm. 2. Trace tricuspid regurgitation present. 3. There is no evidence of pulmonary hypertension. 4. The pulmonic valve was not well visualized. 5. There is no pulmonic regurgitation present. 6. The aortic root size is normal. 7. The inferior vena cava is mildly dilated. 8. There is no pericardial effusion. 9. This was a technically difficult study with suboptimal views. 10. There is moderate concentric left ventricular hypertrophy. 11. Overall left ventricular systolic function is low-normal with, an EF between 50 - 55 %. 12. Normal LA size by volume 22+/-6 ml/m2. 13. 1.5mg of Definity was utilized for enhancement of images 14. There is mild aortic valve sclerosis. 15. The mitral valve leaflets are mildly thickened. 16. There is trace to mild mitral regurgitation. CONTRACT SERVICEMAN: Fidencio Westfall RDCS
== END 2016-10-05 14:00 | disposition home or self-care (01) | DRG 310 ==
LOC: EC 08:01 → 6SEL 10:21
PROVIDERS: ADMIT Internal Medicine; ATTEND Internal Medicine
PROC: HZ2ZZZZ Detoxification Services for Substance Abuse Treatment (ICD-10-PCS; principal; 2016-10-04)
DX: I48.0 Paroxysmal atrial fibrillation (principal); J44.9 Chronic obstructive pulmonary disease, unspecified; I10 Essential (primary) hypertension; E78.5 Hyperlipidemia, unspecified; E03.9 Hypothyroidism, unspecified; I25.119 Atherosclerotic heart disease of native coronary artery with unspecified angina pectoris; G40.909 Epilepsy, unspecified, not intractable, without status epilepticus; K21.9 Gastro-esophageal reflux disease without esophagitis; I25.2 Old myocardial infarction; H54.7 Unspecified visual loss; H91.90 Unspecified hearing loss, unspecified ear; G25.81 Restless legs syndrome; R19.5 Other fecal abnormalities; M47.9 Spondylosis, unspecified; G47.30 Sleep apnea, unspecified; F17.200 Nicotine dependence, unspecified, uncomplicated; Z95.5 Presence of coronary angioplasty implant and graft; Z86.73 Personal history of transient ischemic attack (TIA), and cerebral infarction without residual deficits; Z79.899 Other long term (current) drug therapy; Z79.82 Long term (current) use of aspirin; Z79.02 Long term (current) use of antithrombotics/antiplatelets; Z71.3 Dietary counseling and surveillance; Z71.6 Tobacco abuse counseling; Z71.41 Alcohol abuse counseling and surveillance of alcoholic; Z79.51 Long term (current) use of inhaled steroids; Z86.79 Personal history of other diseases of the circulatory system; Z87.828 Personal history of other (healed) physical injury and trauma; Z86.19 Personal history of other infectious and parasitic diseases; Z88.5 Allergy status to narcotic agent; Z88.8 Allergy status to other drugs, medicaments and biological substances; Z91.048 Other nonmedicinal substance allergy status; Z80.9 Family history of malignant neoplasm, unspecified; Z83.6 Family history of other diseases of the respiratory system; Z90.49 Acquired absence of other specified parts of digestive tract; Z72.89 Other problems related to lifestyle
CPT/HCPCS: 36415; 71020; 80048; 80053; 80061; 82550; 82553; 83605; 83735; 84439; 84443; 84484; 85025; 85610; 85730; 87040; 93005; 93306; 94640; 96365; 96366; 96375; 96376; 99291

== ENCOUNTER → 2016-10-10 | Outpatient (CLI) | payer MEDICARE, BC ==
--- NOTE | 2016-10-10 13:50 | FL ---
EXAMINATION: Small bowel follow through DATE: 10/10/2016 CLINICAL INDICATION: 71-year-old male with anemia and blood in stool. COMPARISON: None Total Fluoroscopy Time: 21 seconds Total images: 22 FINDINGS: Initial customer service manager image shows cystectomy clips and scattered mild stool burden. Nonobstructive bowel gas pattern. Mild degenerative change at both hips. Additional degenerative change in the lower lumbar sp ine. Following administration of barium, serial films were carried out to 3 hours. Barium is seen to reach the colon. Loops of jejunum and ileum are compressed and examined under fluoroscopy. The small bowel loops have a normal-caliber. Mucosal pattern is within normal limits. No intrinsic or extrinsic proc ess is suspected. IMPRESSION: Normal small bowel examination. Small bowel transit time of 3 hours.
== END | disposition home or self-care (01) ==
LOC: RADFLMAIN 08:04
PROVIDERS: ATTEND Internal Medicine Gastroenterology
DX: D64.9 Anemia, unspecified (principal)
CPT/HCPCS: 74250

== ENCOUNTER → 2021-04-23 | Outpatient (CLI) | payer MEDICARE, BC ==
--- NOTE | 2021-04-24 00:48 | MR ---
EXAMINATION TYPE: MR iac wo/w con DATE OF EXAM: 04/23/2021 COMPARISON: None HISTORY: Vertigo, bilateral hearing loss. CONTRAST: Standard multiplanar, multisequence MRI departmental protocol images were obtained without contrast a nd with 10 mL intravenous Gadavist gadolinium contrast. There is mild cerebral atrophy. There is no mass effect or midline shift. There is no sign of intracr anial hemorrhage. There is some mild linear increased signal in the periventricular white matter. The re are scattered peripheral white matter small high signal foci at the ca-white matter junction priscilla suring up to 4 mm in posterior lateral hemispheres. Portal numbers approximate 20% brainstem is intac t. Bone is intact. Diffusion images show no evidence of acute cortical infarct. Corpus callosum is intact. There is no evidence of orbital mass. There is some mild mucosal thickenin g in the maxillary sinuses. Sella turcica appears normal. The internal auditory canals appear normal. There is normal appearance of the acoustic nerve and vest ibular nerve. There is no evidence of cerebellopontine angle mass. Contrast images show no pathologic enhancement. Cerebellum is intact. There is normal signal pattern of the temporal bones. There is no evidence of mastoiditis. IMPRESSION: No evidence of focal posterior fossa abnormality. Scattered small white matter high signal foci could relate to microvascular ischemia and less likely demyelinating disease.
== END | disposition home or self-care (01) ==
LOC: RADMRIMAIN 16:31
PROVIDERS: ATTEND Otolaryngology
DX: R93.0 Abnormal findings on diagnostic imaging of skull and head, not elsewhere classified (principal); H91.93 Unspecified hearing loss, bilateral
CPT/HCPCS: 70553; A9585

== ENCOUNTER → 2022-07-11 | Outpatient (CLI) | payer MEDICARE, BC ==
--- NOTE | 2022-07-11 15:44 | XR ---
EXAMINATION TYPE: XR chest 2V DATE OF EXAM: 07/11/2022 COMPARISON: 10/04/2016 HISTORY: Shortness of breath TECHNIQUE: Frontal and lateral views of the chest are obtained. FINDINGS: Scattered senescent parenchymal changes noted. Hyperinflation compatible with COPD. No evidence for infiltrate. No evidence for atelectasis. Heart size is stable. Mediastinal structures are stable and grossly unremarkable. No evidence for hilar prominence. Degenerative changes dorsal spine. IMPRESSION: 1. No evidence for acute pulmonary disease.
[2022-07-11 21:58] LABS: HCT 42.8 % (39.6-50.0); HGB 14.2 g/dL (13.0-17.0); MCH 31.6 pg (27.0-32.0); MCHC 33.2 g/dL (32.0-37.0); MCV 95.1 fL (80.0-97.0); Mean Platelet Volume 9.9 fL (9.5-12.2); NRBC Per 100 WBC 0 /100 WBCS (0.0-0.0); Platelet Count 237 X 10*3/uL (140-440); RDW 12.5 % (11.5-14.5); WBC 8.07 X 10*3/uL (4.50-10.00)
[2022-07-12 00:37] LABS: African American GFR (CKD) 59.6 (60.0-200.0); Albumin 3.9 g/dL (3.8-4.9); Albumin/Globulin Ratio 1.87 (1.60-3.17); Anion Gap 10.8 mmol/L (10.00-18.00); BUN/Creat Ratio 15.22 Ratio (12.00-20.00); Blood Urea Nitrogen 20.4 mg/dL (9.0-27.0); Calcium 9.9 mg/dL (8.7-10.3); Carbon Dioxide 29.8 mmol/L (20.0-27.5); Globulin 2.1 g/dL (1.6-3.3); Non-African American GFR(CKD) 51.5 (60.0-200.0); Potassium 3.8 mmol/L (3.5-5.5); Total Bilirubin 0.4 mg/dL (0.30-1.20)
== END | disposition home or self-care (01) ==
LOC: LABWHC1 14:52
PROVIDERS: ATTEND Internal Medicine Interventional Cardiology
DX: R06.00 Dyspnea, unspecified (principal)
CPT/HCPCS: 36415; 71046; 80053; 85027

== ENCOUNTER → 2022-09-11 | Day surgery (SDC) | payer MEDICARE, BC ==
[2022-09-10 12:45] VITALS: BMI 27.7
[~2022-09-11] MED LIST: LACTATED RINGERS 1,000 ML IV ONE; LIDOCAINE 2% INJ 20 MG/ML (2 ML VIAL) ONE; PROPOFOL 10 MG/ML 20 ML VIAL IV ONE
[2022-09-11 09:10] VITALS: TEMP 97.2
--- NOTE | 2022-09-11 09:58 | P.PCN ---
Date of Procedure: 09/11/22 Procedure(s) Performed: BRIEF HISTORY: Patient is a 77-year-old pleasant white male scheduled for an elective colonoscopy as a part of evaluation of positive cologuard:/Screening for colon cancer PROCEDURE PERFORMED: Colonoscopy with snare polypectomy. PREOPERATIVE DIAGNOSIS: Positive cologuard/Screening for colon cancer. IV sedation per Anesthesia. PROCEDURE: After informed consent was obtained, the patient, was brought into the endoscopy unit. IV sedation was administered by Anesthesia under continuous monitoring. Digital rectal examination was normal. Initially the Olympus CF-160 flexible video colonoscope was then inserted in the rectum, gradually advanced into the cecum without any difficulty. Careful examination was performed as the scope was gradually being withdrawn. Ileocecal valve and the appendiceal orifice were visualized and appeared normal. Prep was fair.. Mucosa of the cecum, ascending colon, transverse colon, descending colon, sigmoid colon, and rectum appeared normal. The proximal rectum there was a 6 minute a polyp that was removed by cold snare polypectomy. Scattered left-sided diverticulosis seen. Retroflexion was performed in the rectum and no lesions were seen. The patient tolerated the procedure well. IMPRESSION: 6 mm proximal rectal polyp status post polypectomy Scattered sigmoid diverticulosis RECOMMENDATIONS: Findings of this examination were discussed with the patient well as his family. He was advised to follow with the biopsy results. If the biopsy reveals adenoma he can have a repeat colonoscopy in 5 years.
[2022-09-11 10:14] VITALS: RESP 18
[2022-09-11 10:26] VITALS: BP 151/79; PULSE 62
== END ==
LOC: ORWHC2ENDO 08:15
PROVIDERS: ATTEND Internal Medicine Gastroenterology
DX: K62.1 Rectal polyp (principal); K57.30 Diverticulosis of large intestine without perforation or abscess without bleeding; I10 Essential (primary) hypertension; E78.5 Hyperlipidemia, unspecified; I25.2 Old myocardial infarction; I25.10 Atherosclerotic heart disease of native coronary artery without angina pectoris; J44.9 Chronic obstructive pulmonary disease, unspecified; I48.91 Unspecified atrial fibrillation; F17.210 Nicotine dependence, cigarettes, uncomplicated; E07.9 Disorder of thyroid, unspecified; Z86.73 Personal history of transient ischemic attack (TIA), and cerebral infarction without residual deficits; Z95.5 Presence of coronary angioplasty implant and graft; Z88.5 Allergy status to narcotic agent; Z91.041 Radiographic dye allergy status; Z88.8 Allergy status to other drugs, medicaments and biological substances; Z79.890 Hormone replacement therapy; Z79.899 Other long term (current) drug therapy
CPT/HCPCS: 88305; 45385; J2704; J2001

== ENCOUNTER → 2023-09-18 | Outpatient (CLI) | payer MEDICARE, BC ==
--- NOTE | 2023-09-20 18:35 | CTL ---
EXAMINATION TYPE: CT Low Dose Lung DATE OF EXAM ORDERED: 09/18/2023 HISTORY: nicotine dependence. Lung cancer screening CT DLP: 114.[address] CTDI: 2.6 mGy Automated exposure control for dose reduction was used. SCREENING VISIT: Initial COMPARISON: None TECHNIQUE: Low dose computed tomography scan was performed through the chest at 1 mm thick sections a nd reconstructed images in the coronal plane at [address] DIAGNOSTIC QUALITY: Satisfactory FINDINGS: LUNG NODULES: None. There may be some scarring at the lung apices. Some minimal infiltrate may be in the anterior lingula LUNGS: COPD: Severity: None Fibrosis: Severity: None Lymph nodes: None Other findings: None RIGHT PLEURAL SPACE: Effusion: None Calcification: None Thickening: None Pneumothorax: None LEFT PLEURAL SPACE: Effusion: None Calcification: None Thickening: None Pneumothorax: None HEART: Other: Ascending thoracic aorta at the level the main pulmonary artery measures 4.0 cm. The main pul monary artery at the bifurcation measures 2.9 cm. Heart Size: Normal Coronary calcification: Mild Pericardial effusion: None OTHER FINDINGS: Upper abdomen: Normal Bony thorax: Normal Supraclavicular region: Normal IMPRESSION: No suspicious changes to suggest primary or metastatic neoplasm. FOLLOW UP CT CHEST RECOMMENDATION: Follow-up low-dose CT chest one year CT LUNG RAD: Lung-Rad 2 Benign Appearance or Behavior
== END | disposition home or self-care (01) ==
LOC: RADCTMAIN 13:35
PROVIDERS: ATTEND Internal Medicine
DX: Z12.2 Encounter for screening for malignant neoplasm of respiratory organs (principal); F17.210 Nicotine dependence, cigarettes, uncomplicated
CPT/HCPCS: 71271

== ENCOUNTER 2024-08-12 13:27 | Emergency (ER) | payer BC, MEDICARE, OTHER ==
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
[2024-08-12 14:15] LABS: Basophils # (A) 0.06 10*3/uL (0.00-0.10); Basophils % (A) 0.6 %; Eosinophils # (A) 0.22 10*3/uL (0.04-0.35); Eosinophils % (A) 2.2 %; HCT 44.8 % (39.6-50.0); Lymphocytes # (A) 2.94 10*3/uL (0.90-5.00); Lymphocytes % (A) 29.2 %; MCH 30.9 pg (27.0-32.0); MCHC 33.5 g/dL (32.0-37.0); MCV 92.2 fL (80.0-97.0); Mean Platelet Volume 10.4 fL (9.5-12.2); Monocytes # (A) 0.87 10*3/uL (0.20-1.00); Monocytes % (A) 8.6 %; Neutrophils # (A) 5.94 10*3/uL (1.80-7.70); Neutrophils % (A) 59.1 %; Platelet Count 175 10*3/uL (140-440); RBC 4.86 10*6/uL (4.40-5.60); RDW 14.2 % (11.5-14.5); WBC 10.06 10*3/uL (4.50-10.00)
[2024-08-12 14:28] LABS: ALT 19 U/L (4-49); AST 27 U/L (17-59); African American GFR (CKD) 65 (>60 ml/min/1.73 sqM); Albumin 3.3 g/dL (3.5-5.0); Alcohol <10 mg/dL; Alkaline Phosphatase 70 U/L (38-126); Anion Gap 8 mmol/L; Blood Urea Nitrogen 25 mg/dL (9-20); Calcium 9.6 mg/dL (8.4-10.2); Carbon Dioxide 24 mmol/L (22-30); Chloride 106 mmol/L (98-107); Glucose 96 mg/dL (74-99); Non-African American GFR(CKD) 57 (>60 ml/min/1.73 sqM); Potassium 4.2 mmol/L (3.5-5.1); Sodium 138 mmol/L (137-145); Total Protein 5.7 g/dL (6.3-8.2)
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
[2024-08-12 14:39] LABS: Prothrombin Time 11.4 sec (10.0-12.5)
[2024-08-12] MEDS ORDERED: cefTRIAXone IN SWFI 1,000 MG/10 ML SYRINGE IVP STA (15:40)
[2024-08-12] MEDS: DIPH,PERTUS(ACELL)TETVAC-LF 0.5 ML VIAL IM ONE (16:14)
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
[2024-08-12 18:30] VITALS: BP 119/82; PULSE 70; RESP 19; TEMP 97.9
== END 2024-08-12 19:00 | disposition home or self-care (01) ==
LOC: EC 13:27
DX: M54.6 Pain in thoracic spine (principal); F17.200 Nicotine dependence, unspecified, uncomplicated; Z86.73 Personal history of transient ischemic attack (TIA), and cerebral infarction without residual deficits; Z88.8 Allergy status to other drugs, medicaments and biological substances; Z91.041 Radiographic dye allergy status; Z88.5 Allergy status to narcotic agent; V89.2XXA Person injured in unspecified motor-vehicle accident, traffic, initial encounter
CPT/HCPCS: 36415; 70450; 71046; 72125; 80053; 80320; 83605; 84484; 85025; 85610; 85730; 86850; 86900; 86901; 93005; 99285